=== PATIENT | male | born 1955 | race Caucasian/White ===

== ENCOUNTER 2021-08-27 05:05 | Observation (INO) ==
--- NOTE | 2021-08-17 09:20 | PAT Medication Instructions ---
Medication Instructions Date of Service August 17, 2021 Home Medications Medication Instructions Recorded leuprolide (3 month) 22.5 mg (3 22.5 mg SUBCUT ONCE #1 ea 06/09/21 month) subcutaneous syringe (Eligard) fluoxetine 20 mg capsule 20 mg PO QAM spironolactone 25 mg tablet 25 mg PO QPM atorvastatin 20 mg tablet 20 mg PO QPM felodipine 10 mg tablet,extended release 24 hr 10 mg PO QPM hydrochlorothiazide 25 mg tablet 25 mg PO QAM lisinopril 40 mg tablet 40 mg PO QPM metoprolol succinate 200 mg tablet,extended release 24 hr 200 mg PO QPM multivitamin 1 tab PO QAM leuprolide (3 month) 22.5 mg (3 month) subcutaneous syringe (Eligard) 22.5 mg SUBCUT ONCE aspirin 81 mg chewable tablet 81 mg PO Q OTHER DAY tamsulosin 0.4 mg capsule 0.4 mg PO QPM Continue as directed aspirin 81 mg chewable tablet 81 mg PO Q OTHER DAY (unless surgeon directed otherwise) ASK your prescriber and surgeon leuprolide (3 month) 22.5 mg (3 month) subcutaneous syringe (Eligard) 22.5 mg SUBCUT ONCE DO NOT take the morning of surgery hydrochlorothiazide 25 mg tablet 25 mg PO QAM multivitamin 1 tab PO QAM Take morning of surgery With a small sip of water, OTHERWISE NOTHING TO EAT OR DRINK AFTER MIDNIGHT: fluoxetine 20 mg capsule 20 mg PO QAM Take evening before surgery spironolactone 25 mg tablet 25 mg PO QPM atorvastatin 20 mg tablet 20 mg PO QPM felodipine 10 mg tablet,extended release 24 hr 10 mg PO QPM lisinopril 40 mg tablet 40 mg PO QPM metoprolol succinate 200 mg tablet,extended release 24 hr 200 mg PO QPM tamsulosin 0.4 mg capsule 0.4 mg PO QPM Other Notes If you have any questions please call us at [phone] or [phone] or [phone] or [phone]
--- NOTE | 2021-08-19 11:48 | Anesthesiology Consultation ---
Date of Service August 19, 2021 Assessment & Plan (1) Encounter for pre-operative examination: - Thoracic aortic aneurysm: Dilated ascending aorta (4.0cm) per 2017 echo, Per pt, surveillance echo scheduled prior to surgery (Dr. Dominguez). Awaiting Echo report. - COVID screening: Per assessment on 08/19: No known COVID-19 positive contacts or current COVID-19 related symptoms. Travel screen negative. Patient vaccinated. Surgeon arranging preop COVID testing. Awaiting results. - ETOH use: 4-5 beers/evening, no daytime ETOH use Chart Review Chart Review: Patient seen in Pre Admission Testing Teaching & Discussion Pre-Anesthesia Teaching/Discussion Notes: Instructed NPO after midnight before surgery,except medications with 15 cc of water. Medication instructions provided according to the PAT guidelines. History Surgery Operation Date: 08/27/21 09:20 Proposed Procedures p Left Total Hip Arthroplasty - Jonathan Fatima MD Height/Weight Height: 5 ft 6 in Weight: 98.6 kg Allergies Allergy/AdvReac Type Severity Reaction Status Date / Time amoxicillin Allergy Mild Rash Verified 08/18/21 09:22 Medications Home Medications Medication Instructions Recorded Confirmed Last Taken fluoxetine 20 mg capsule 20 mg PO QAM 05/14/20 08/14/21 Unknown spironolactone 25 mg tablet 25 mg PO QPM 05/14/20 08/14/21 Unknown atorvastatin 20 mg tablet 20 mg PO QPM 07/31/20 08/14/21 Unknown felodipine 10 mg tablet,extended 10 mg PO QPM 07/31/20 08/14/21 Unknown release 24 hr hydrochlorothiazide 25 mg tablet 25 mg PO QAM 07/31/20 08/14/21 Unknown lisinopril 40 mg tablet 40 mg PO QPM 07/31/20 08/14/21 Unknown metoprolol succinate 200 mg 200 mg PO QPM 07/31/20 08/14/21 Unknown tablet,extended release 24 hr multivitamin 1 tab PO QAM 07/31/20 08/14/21 Unknown leuprolide (3 month) 22.5 mg (3 22.5 mg SUBCUT ONCE #1 ea 06/09/21 08/14/21 Unknown month) subcutaneous syringe ([employer]) aspirin 81 mg chewable tablet 81 mg PO Q OTHER DAY 08/14/21 08/14/21 Unknown tamsulosin 0.4 mg capsule 0.4 mg PO QPM 08/14/21 08/14/21 Unknown Past Medical History Medical History Anxiety Arthritis Dyslipidemia Hearing deficit History of COVID-19 Dx 02/2020 Hypertension Lipoma Prostate cancer s/p radiation tx Thoracic aortic aneurysm Dx 10yrs ago, under surveillance by vascular (Dr. Dominguez) 4.0cm per 2017 echo Exercise / Class Metabolic Activity II 4-5 Yardwork/Stairs/Walk up hill Past Family History Family History Father , 79yo Colon cancer Hypertension Mother Heart disease Brother No problems noted. Brother , at ;Twin No problems noted. Brother , day of - Twin No problems noted. Son No problems noted. Other No family history of adverse response to anesthesia Past Surgical History Surgical History H/O colonoscopy History of hip replacement Right History of prostate biopsy Malignant History of tooth extraction History of vasectomy Hx of shoulder surgery Right RCR Past Anesthesia History No Hx of Anesthesia Complications and No Family Hx of Anesthesia Complications History of PONV No Hx of PONV and No Hx of Motion Sickness Social History Smoking Status: Former smoker Smoking cigarettes per day: Quit 40yrs ago Do You Dip or Chew Tobacco: No Hx Alcohol Use: Yes Alcohol type: beer alcohol intake frequency: 3 or more drinks per day (4-5 beers/evening, no daytime ETOH use) Hx Substance Use: No substance use type: does not use Review of Systems Patient denies chest pain, shortness of breath, dyspnea on exertion, fever, chills, cough, wheezing, palpitations. Physical Exam Vital Signs VITALS BP 130/73 P 57 TEMP 98.7 SP02 96%RA RESP 16 PHYSICAL Full cervical extension range of motion. Full TMJ range of motion. TMD 3 finger breaths Mallampati Score 1 Dentition: missing sides Lungs: clear throughout to auscultation Cardiac: regular rate and rhythm, no murmurs noted Spine: normal Carotid arteries: negative bruit Extremities: no edema Lab Results Anesthesia Preop Results Results Anesthesia Widget: PT 11.1 Seconds (9.0-12.0) 08/19/21 PTT 27.4 Seconds (21.0-31.0) 08/19/21 INR 1.0 (0.9-1.1) 08/19/21 Blood Type A Positive 08/19/21 Antibody Screen NEGATIVE 08/19/21 Testing Laboratory Results 08/19/21 WBC 7.22 H/H 11.4/35.3 PLATELETS 232 SODIUM 140 POTASSIUM 4.5 CHLORIDE 107 CO2 25 BUN 31 CREATININE 1.13 GLUCOSE 111 HGBA1C 6.1% Electrocardiogram Date: 08/19/21 SB at 56bpm. unconfirmed report.
--- NOTE | 2021-08-19 15:26 | History & Physical Report ---
Date of Service August 19, 2021 Assessment & Plan (1) Osteoarthritis of left hip: Plan: PRE-OP Diagnosis: Left hip osteoarthritis Planned Procedure: Left total hip arthroplasty Plan: Patient is scheduled to undergo this procedure at the [facility] with a 23-hour observation admission on , August 27, [address] Fatima. Risks and complications of the procedure such as: Infection, bleeding, pain, scarring, nerve blood vessel damage, weakness, wound problems, stiffness, incomplete relief of symptoms, hardware failure, hardware loosening, wear, fracture, tendon or ligament injury, dislocation, leg length inequality, blood clots, embolism, artifact, stroke and were explained to the patient his visit today. Informed consent to perform the procedure was obtained. Patient also understands risks of proceeding with surgical inte rvention during the COVID-19 pandemic. Currently he is asymptomatic and understands that he will need to be tested prior to surgery. Patient states that he has appointment scheduled with his primary care provider Dr. Ronquillo as well as his vascular surgeon Dr. Dominguez for clearance. He states that he is also scheduled to meet with anesthesia of [facility] later today. While there he will obtain an EKG, CBC with differential, complete metabolic panel, PT/INR, blood type and screen, urinalysis, urine culture and sensitivity, hemoglobin A1c, nasal culture for MRSA. Patient states that he has a walker at home we will bring with him on the day of the procedure. He also has a hip kit a raised toilet seat and shower chair at home from his previous hip surgery. We discussed antibiotic use prior to dental procedures following joint replacement surgery. Patient states that he already knows it is from his previous hip surgery. We also discussed lectures offered by [facility] in regards to joint replacement surgery., However he does not feel that he needs to take part in these. I offered him paperwork to obtain a handicap placard for his vehicle and he declined. We discussed discharge planning he plans on doing in-home physical therapy for the first 2 weeks postoperatively and then would like to transition to outpatient physical therapy at [facility] in [place]. I advised the patient that he will be discharged from the hospital with prescriptions for a narcotic pain medication and an anti-inflammatory. I also advised him that I would like him to supplement for additional pain control with extra Tylenol and we would like him to be on a baby aspirin twice daily for the first 30 days postoperatively for blood clot prevention. Patient was scheduled for his 2-week postoperative follow-up with myself on September 11 at 3:45 PM. Patient verbalized understanding of all information provided during today's visit. Thanks for the care they received. If he has questions or concerns should arise prior to surgery, he will contact clinic. History of Present Illness Chief Complaint: Chief Complaint: Left hip pain Primary Care Provider: Elijah Hannah History of Present Illness (including history relevant to procedure): This 66-year-old male presents to clinic today for his preoperative history and physical. Patient states that he has been experiencing significant left hip pain for the past year or 2. Patient states that he had his right hip replaced about 7 years ago by a surgeon in [place]. He states that surgeon is no longer practicing at the recommendation of his primary care provider and his daughter he came to our clinic for evaluation by Dr. Fatima. He says the hip hurts in his groin and anterior thigh mostly. Occasional lateral-sided pain. It bothers him with walking, sitting, and taking care of his horses. It is better with rest. He trialed Celebrex, which did not help. He says he did physical therapy and injections for his right hip before the hip replacement and those did not help, so he is not interested in having those kinds of treatments for the left hip. No numbness or tingling down the leg. He was recently treated for prostate cancer within the last year with radiation Review Of Systems: 12 point review of systems is performed and is unremarkable except for those things stated in the HPI and past medical history. Past Medical History: Problems: Left hip pain Lesion of skin of scalp Annual physical exam Prostate CA Aneurysm of iliac artery Aortic ectasia, thoracic Hypercholesterolemia FH: colon cancer in first degree relative <60 years old Prediabetes, prediabetic Low back pain HTN - Hypertension Family history of cardiovascular disease Overweight DEPRESSION Mitral regurgitation Osteoarthritis of hip Hip pain, right Hearing ED (erectile dysfunction) Tubular adenoma Procedure History Procedure Procedure Date Comments External beam radiation therapy procedure - x 45 treatments for Prostate CA Plain X-ray of left hip 07/21/2021 - No acute fracture or dislocation. Moderate to severe left hip osteoarthritis. Colonoscopy 07/14/2021 - Three 1 to 3 mm polyps in the cecum- biopsied. Two 3 mm polyps in the ascending colon- biopsied. One 4 mm polyp in the transverse colon- biopsied. One 4 mm polyp in the rectum- biopsied. The distal rectum and anal verge are normal on retroflexion view. Repeat colonosocpy in 3-4 years. Bone density scan 07/07/2021 - AP Spine L1-L4 1.3Left Femur Total 0.7Femur Neck 0.3Z-Score 1.2 Bone scan 08/18/2020 - No evidence of skeletal metastatic disease. CT of chest without contrast 08/14/2020 - 1. Multiple small solid pulmonary nodules which measure up to 4 mm. These are likely benign however follow-up according to the attached recommendations is suggested.2. Two low-attenuation left adrenal nodules suggestive of adenomas.3. No acute process within the chest. CT of abdomen and pelvis with contrast 08/06/2020 - 1. There is no evidence of metastatic disease in the abdomen or pelvis.2. Low suspicion pulmonary nodules are seen in the right middle lobe. Consider dedicated chest CT for further assessment of the thorax.3. Low-attenuation left adrenal nodules likely represent adenomas but cannot be definitively characterized due to the presence of IV contrast. These could also be assessed with a noncontrast chest CT.4. Additional findings as above. Colonoscopy 07/21/2020 - One 3mm polyp in the proximal scending colon, removed with cold biopsy forceps. Resected and retrieved. Biopsy of prostate 06/23/2020 - Nodule at right apex; small cyst/hypoechoic area corresponds w/ nodule. Impacted cerumen 11/13/2019 - REMOVAL VASCULAR STUDY 11/12/2019 - INTERPRETATION/FINDINGS Arterial duplex imaging performed of the abdominal aorta andbilateral iliac arteries: 1. The abdominal aorta is within normal limits; no aneurysm or stenosis identified. 2. The bilateral common iliac arteries are ectatic, measuring 1.6 cm on the right and 1.5 cm on the left. 3. No significant stenosis identified in the bilateral common iliac, external iliac or common femoral arteries. Compared to the previous study performed 10/31/2018, there is no change. ECHO TRANSTHORACIC 10/31/2018 - CONCLUSIONS Normal LV size and systolic function with no regional wall motion abnormalities. Ejection fraction is 60%. No left ventricular hypertrophy. Type 2 diastolic dysfunction Indeterminate LA Pressures. Severely dilated left atrium. Dilated right ventricle with normal systolic function. Dilated ascending aorta (4.1 cm). No significant valvular pathology. Normal pulmonary artery pressures. Compared to the previous study performed 08/15/2017, there is no significant change. Eye examination 04/08/2016 - grade 1 hypertensive retinopathy [facility] 09/12/2015 - left hand laceration Colonoscopy 06/04/2015 - tubular adenoma - repeat 5 years testicular ultrasound 05/22/2015 - no change from previous ultrasound THR - Total hip replacement right 02/12/2014 - Dr. Lange Colonoscopy normal 06/12/2006 echo 03/14/2005 Repair of rotator cuff of shoulder 03/14/2004 - right with bicep tendon repaired also Shave biopsy of skin 11/12/2000 - nevus History of - vasectomy 03/14/1987 lipoma of left hip removal 03/14/1987 Allergies and Sensitivities: Cymbalta(lighteaded, dizzy) amoxicillin(rash) Social history: Patient states he consumes between 4 and 5 alcoholic beverages per day. He denies tobacco or illicit drug use Family history: Cancer, Leukemia, hypertension and heart disease Current Home Meds: (Last Updated 08/19 09:41) FLUoxetine (FLUoxetine 20 mg oral capsule) TAKE 1 CAPSULE DAILY atorvastatin (atorvastatin 20 mg oral tablet) 20 mg PO Daily felodipine (felodipine 10 mg oral tablet, extended release) 10 mg PO Daily hydroCHLOROthiazide (hydroCHLOROthiazide 25 mg oral tablet) 25 mg PO Daily ketoconazole topical (ketoconazole 2% topical shampoo) 1 appl topical Daily apply to scalp daily to every other day lisinopril (lisinopril 40 mg oral tablet) TAKE 1 TABLET ONCE DAILY meloxicam (meloxicam 7.5 mg oral tablet) 7.5 mg PO Daily metoprolol (metoprolol succinate 200 mg oral tablet, extended release) 200 mg PO Daily multivitamin (MVI-12) 1 tab PO Daily naproxen (naproxen 500 mg oral tablet) 500 mg PO bid with food spironolactone (spironolactone 25 mg oral tablet) 25 mg PO Daily with meals tamSULOsin 1 capsule daily Allergies Allergy/AdvReac Type Severity Reaction Status Date / Time amoxicillin Allergy Mild Rash Verified 08/18/21 09:22 Home Medications Medication Instructions Recorded Confirmed Type fluoxetine 20 mg capsule 20 mg PO QAM 05/14/20 08/14/21 History spironolactone 25 mg tablet 25 mg PO QPM 05/14/20 08/14/21 History atorvastatin 20 mg tablet 20 mg PO QPM 07/31/20 08/14/21 History felodipine 10 mg tablet,extended 10 mg PO QPM 07/31/20 08/14/21 History release 24 hr hydrochlorothiazide 25 mg tablet 25 mg PO QAM 07/31/20 08/14/21 History lisinopril 40 mg tablet 40 mg PO QPM 07/31/20 08/14/21 History metoprolol succinate 200 mg 200 mg PO QPM 07/31/20 08/14/21 History tablet,extended release 24 hr multivitamin 1 tab PO QAM 07/31/20 08/14/21 History leuprolide (3 month) 22.5 mg (3 22.5 mg SUBCUT ONCE #1 ea 06/09/21 08/14/21 Rx month) subcutaneous syringe (Inotec AMD) aspirin 81 mg chewable tablet 81 mg PO Q OTHER DAY 08/14/21 08/14/21 History tamsulosin 0.4 mg capsule 0.4 mg PO QPM 08/14/21 08/14/21 History Past Med/Surg History Medical History Anxiety Arthritis Dyslipidemia Hearing deficit History of COVID-19 Dx 02/2020 Hypertension Lipoma Prostate cancer s/p radiation tx Thoracic aortic aneurysm Dx 10yrs ago, under surveillance by vascular (Dr. Dominguez) 4.0cm per 2017 echo Surgical History H/O colonoscopy History of hip replacement Right History of prostate biopsy Malignant History of tooth extraction History of vasectomy Hx of shoulder surgery Right RCR Family History Father , 79yo Colon cancer Hypertension Mother Heart disease Brother No problems noted. Brother , at ;Twin No problems noted. Brother , day of - Twin No problems noted. Son No problems noted. 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 Extraocular movements are intact Throat: Deferred due to COVID-19 precautions Cardiac: Regular rate and rhythm with no murmurs or gallops appreciated Lungs: Clear to auscultation throughout with no wheezing, rales or rhonchi Abdomen: Mildly obese, nondistended, nontender with NABS Extremities: Left hip; flexion is limited to 90 degrees, internal rotation to - 10 degrees and external rotation 50 degrees. Logroll test and Stinchfield test are both positive. Straight leg raise test was positive with referred pain to the groin. Patient also had tenderness to palpation in the groin area. He was neurovascularly intact left lower extremity. Neuro: Cranial nerves II through XII are intact no motor or sensory deficit Skin: Normal in appearance no open skin areas or discharge Results & Data ([facility]) Diagnostic Findings Studies (relevant to the procedure): X-rays that were done on July 21, 2021, show a right total hip arthroplasty in place. He has near [id number] arthritis on the left hip with joint space narrowing, subchondral sclerosis, and marginal osteophyte formation.
[2021-08-27] MEDS ORDERED: FAMOTIDINE 20 MG TAB PO SCH (06:00)
[2021-08-27] MEDS ORDERED: TRANEXAMIC ACID 1,000 MG **IV Pre-op IV SCH (06:00)
[2021-08-27] MEDS ORDERED: Scopolamine 1 MG TDSY TD SCH (06:00)
[2021-08-27] MEDS ORDERED: ACETAMINOPHEN 500 MG TAB PO SCH (06:00)
[2021-08-27] MEDS ORDERED: LR 60ML/HR IV SCH (06:00)
[2021-08-27] MEDS ORDERED: CeleBREX 200 MG CAP PO SCH (06:00)
[2021-08-27] MEDS ORDERED: traMADol HCL 50 MG TABLET PO SCH (06:00)
[2021-08-27] MEDS ORDERED: TRANEXAMIC ACID 1,000 MG **IV Intra-op IV SCH (06:00)
[2021-08-27] MEDS ORDERED: LR 500ML BOLUS, THEN 15ML/HR IV SCH (06:00)
[2021-08-27] MEDS ORDERED: dexAMETHasone 4 MG TAB PO SCH (06:00)
[2021-08-27] MEDS ORDERED: ROPIVACAINE 0.5% HCL/PF 150 MG, BUPIVACAINE 0.75% MPF 20 ML, EPINEPHrine 0.15 MG, Ketor... INFIL SCH (06:00)
[2021-08-27] MEDS ORDERED: BUPIVACAINE 0.5 % 5 MG/1 ML PF 10ML VIAL ONE (06:21)
[2021-08-27] MEDS ORDERED: ORTHO JOINT ANESTHETIC ONE (06:36)
[2021-08-27] MEDS ORDERED: ceFAZolin 2,000 MG/15 ML IV PUSH IV ONE (06:41)
--- NOTE | 2021-08-27 06:43 | History & Physical Bridge Note ---
Date of Service August 27, 2021 History & Physical Bridge Note I have examined the patient, reviewed the History & Physical and in the interval since the performance of the History & Physical I have noted the following changes of clinical significance: no changes noted. He has a history of rash from Amoxicillin. We discussed our plan to give Ancef so he has the lowest risk of postoperative surgical site infection, acknowledging a small risk that he will get a rash from Ancef. He agrees with the plan.
[2021-08-27] MEDS ORDERED: MIDAZOLAM HCL 1 MG/ML 2ML VIAL ONE (06:47)
[2021-08-27] MEDS ORDERED: ATROPINE SULFATE 0.1 MG/ML 10ML SYR IV PRN (07:04)
[2021-08-27] MEDS ORDERED: ePHEDrine sulfate 50 MG/ML AMP IV PRN (07:04)
[2021-08-27] MEDS ORDERED: PROPOFOL IV EMULSION 10 MG/ML 20 ML VIAL IV ONE (07:15)
[2021-08-27] MEDS ORDERED: fentaNYL citrate 100 MCG/2 ML VIAL ONE (07:27)
[2021-08-27] MEDS ORDERED: ONDANSETRON INJ 2 MG/ML 2 ML VIAL ONE (07:31)
--- NOTE | 2021-08-27 08:53 | Operative Report ---
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 X-rays demonstrate [id number] arthritis. I had a long discussion with him about the risks and benefits of surgery, alternatives of surgery and expected outcomes. 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 He was cleared by vascular surgery as well as his primary care physician for surgery. After reviewing all of his options he elects to proceed with total hip replacement. Informed consent was signed. Description of Procedure Patient was identified in the preoperative holding area and the surgical site, left hip, was marked. A spinal anesthetic was placed, then the patient was brought back to the main operating room, placed in the operating table and moved into the lateral decubitus position. Axillary roll was placed. All bony prominences were padded. Perioperative antibiotics and tranexamic acid 1 gram IV were administered. Operative extremity was prepped and draped in the normal sterile fashion. Prior to incision a multidisciplinary timeout was called. All in the room were in agreement. We began by making an incision for a posterior approach to the hip. We dissected down through subcutaneous tissues to the level of the fascia. The fascia was incised in line with the incision. Charnley bow was placed. The trochanteric bursa was excised. The piriformis and short external rotators were dissected off the posterior aspect of the hip. A box cut was made in the capsule. The femoral head was dislocated. The femoral neck cut was made at our preoperative template. The acetabulum was then exposed. The labrum was sharply excised. Contents of the cotyloid fossa were removed with electrocautery. We then began reaming at a size 8 mm less than our preoperative template. We reamed up by [address] the way up to a size 56 mm cup. This gave us good bleeding cancellus bone circumferentially. The acetabulum was then irrigated out and dried. The real Eureka Gription cup was then impacted down into position with 45 degrees of lateral opening and 25 degrees of anteversion. A single cancellous bone screw was placed up into the ilium. Excellent fixation was obtained. An Altrx polyethylene liner for a 36 mm femoral head was then impacted into the shell. The locking mechanism was checked to ensure that it had engaged which it had. Next we turned our attention to the femur. The lateral neck was removed with a box osteotome. Intramedullary guide was used followed by the lateralizing reamer. We then reamed up to a size 4 Edgecomb stem. We then broached up to a size 3 which had good stability. We began trialing with a high offset neck and a +5 head. Hip was reduced. Leg length was just slightly longer than his other side. The hip was stable in extension and external rotation, and stable in the sleeper position. At 90 degrees of hip flexion the hip could be internally rotated 55 degrees before levering out of the cup. I was very happy with the stability exam. Therefore the hip was dislocated and the femoral trial was removed. The femoral canal was irrigated and dried. The real size 3 high offset Edgecomb femoral stem was opened up. This was impacted down into position. It sat about 2 mm more proud than the femoral trial. We then re-trialed with a +1.5 mm offset head. Now the leg lengths were symmetric and stability exam was unchanged. Therefore, the 36 mm ceramic femoral head with a +1.5 mm offset was opened up and gently impacted down onto the trunnion. The hip was atraumatically reduced. Another 1 gram of IV tranexamic acid was started prior to closure. The wound was irrigated out with sterile Betadine solution. The periarticular injection cocktail was then placed. The short external rotators, piriformis, and posterior capsule were repaired through drill holes in the greater trochanter using #2 Vicryl. The fascia was run with a looped #1 PDS. The subcutaneous layer was closed with #1 PDS. The dermal layer was closed with 2-0 Vicryl. Zip line was used for the skin followed by a Silverlon dressing. A compressive dressing was then placed. The patient was then rolled supine. Leg lengths were rechecked and were symmetric. An abduction pillow was placed. Sedation was lifted and the patient was transferred to recovery room in stable condition. Summary of implants: Depuy Eureka Gription Acetabular Shell Sector Cup, 56 mm outer diameter Eureka Cancellous bone screw, 6.5 x 30 mm Eureka Altrx Polyethylene Acetabular Liner, Neutral, with a 36 mm inner diameter DePuy Edgecomb Femoral stem with Porocoat, 12/14 taper, size 3 high offset 36 mm ceramic femoral head with +1.5 mm offset Postoperative course: Patient will be admitted to the hospital from the recovery room. Patient will be weightbearing as tolerated with posterior hip precautions. Aspirin for DVT prophylaxis I attest to the content of the Intraoperative Record and any orders documented therein. Any exceptions are noted below.
--- NOTE | 2021-08-27 09:09 | Operative Report ---
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 Fatima during the procedure. Please see Dr. Fatima note. I attest to the content of the Intraoperative Record and any orders documented therein. Any exceptions are noted below.
[2021-08-27] MEDS ORDERED: ALUMINUM/MAGNESIUM SUSP 30 ML UDC PO PRN (09:10)
[2021-08-27] MEDS ORDERED: diphenhydrAMINE 50 MG/ML VIAL IV PRN (09:10)
[2021-08-27] MEDS ORDERED: ONDANSETRON INJ 2 MG/ML 2 ML VIAL IV PRN (09:10)
[2021-08-27] MEDS ORDERED: oxyCODONE HCL IR 5 MG TAB (IMMEDIATE RELEASE) PO PRN (09:10)
[2021-08-27] MEDS ORDERED: MAGNESIUM HYDROXIDE SUSP 30 ML UDC PO PRN (09:10)
[2021-08-27] MEDS ORDERED: METOCLOPRAMIDE HCL INJ 5 MG/ML 2 ML VIAL IV PRN (09:10)
[2021-08-27] MEDS ORDERED: NALOXONE HCL 0.4 MG/1 ML VIAL/CARP IV PRN (09:10)
[2021-08-27] MEDS ORDERED: bisacodyL 10 MG SUPP PR PRN (09:10)
[2021-08-27] MEDS ORDERED: TAMSULOSIN HCL 0.4 MG CAP PO PRN (09:10)
--- NOTE | 2021-08-27 09:10 | Operative Report ---
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 Fellow also present. I served as an extra set of hands during the case. Please see Dr. Fatima procedure note for specifics of the case. I attest to the content of the Intraoperative Record and any orders documented therein. Any exceptions are noted below.
[2021-08-27] MEDS ORDERED: LEUPROLIDE 22.5 MG SQ SCH (09:15)
--- NOTE | 2021-08-27 09:46 | XRay Report ---
SINGLE VIEW PELVIS CLINICAL HISTORY: Postoperative examination. FINDINGS: An AP portable view of the hips and lower pelvis is compared to study dated 08/19/2021. A bip olar left hip arthroplasty has been placed. A single cortical lag screw transfixes the acetabular cup . There is no evidence of acute fracture. Soft tissue swelling and subcutaneous gas overlying the lef t hip are expected postoperative changes. A right hip arthroplasty is unchanged in position. Scleroti c change is noted the pubic symphysis. IMPRESSION: Expected postoperative findings status post left hip arthroplasty. No acute fracture is s een. Electronically signed by: Lit Lilly M.D. 08/27/2021 9:45 AM
--- NOTE | 2021-08-27 09:59 | Anesthesiology Progress Note ---
Date of Service August 27, 2021 Anesthesia Post Procedure Vital Signs Vital Signs: Temp Pulse Resp BP BP Pulse Ox 08/27/21 09:45 36.3 C L 52 L 13 107/68 95 08/27/21 09:35 51 L 11 L 103/63 93 08/27/21 09:25 54 L 11 L 106/70 96 08/27/21 09:15 54 L 11 L 101/67 94 08/27/21 09:08 36.2 C L 53 L 10 L 102/63 98 08/27/21 05:30 37.2 C 56 L 18 132/81 98 Pain Intensity Left Hip: Pain Intensity: 0 Transfer of Care Handoff Completed per policy Notes Mental Status: alert / awake / arousable and participated in evaluation Patient Amnestic to Procedure: Yes Nausea / Vomiting: adequately controlled Pain: adequately controlled Airway Patency, RR, SpO2: stable & adequate BP & HR: stable & adequate Hydration State: stable & adequate Neuraxial Anesthesia: was administered and sensory block is resolving Anesthetic Complications: no major complications apparent
[2021-08-27] MEDS: KETOROLAC TROMETHAMINE 15 MG/ML VIAL IV SCH ×3 (13:03→23:52)
[2021-08-27] MEDS: SODIUM CHLORIDE 0.9% 1000ML 1,000 ML IV SCH ×2 (13:06→22:28)
[2021-08-27] MEDS: ACETAMINOPHEN 500 MG TAB PO SCH ×2 (14:10→21:36)
[2021-08-27] MEDS ORDERED: TRANEXAMIC ACID / 0.7% NACL 1,000 MG/100 ML BAG IV SCH (15:00)
[2021-08-27] MEDS: Scopolamine CHECK PATCH PLACEMENT SCH ×2 (16:58→23:52)
[2021-08-27] MEDS: ceFAZolin 2000MG 2,000 MG/15 ML SYR IV SCH ×2 (16:58→23:52)
[2021-08-27] MEDS: ASPIRIN 81 MG ECTAB PO SCH (20:10)
[2021-08-27] MEDS: DOCUSATE SODIUM 100 MG CAP PO SCH (20:11)
[2021-08-27] MEDS ORDERED: SPIRONOLACTONE 25 MG TAB PO SCH (21:00)
[2021-08-27] MEDS ORDERED: ATORVASTATIN 20 MG TAB PO SCH (21:00)
[2021-08-27] MEDS ORDERED: SENNA 8.6 MG TAB PO SCH (21:00)
[2021-08-27] MEDS ORDERED: METOPROLOL SUCC 50MG EXT REL TAB PO SCH (21:00)
[2021-08-27] MEDS ORDERED: lisinopril 40 MG TAB PO SCH (21:00)
[2021-08-27] MEDS ORDERED: TAMSULOSIN HCL 0.4 MG CAP PO SCH (21:00)
[2021-08-27] MEDS ORDERED: FELODIPINE 5 MG TABCR PO SCH (21:00)
[2021-08-28 04:57] VITALS: TEMP 97.7
[2021-08-28] MEDS: ACETAMINOPHEN 500 MG TAB PO SCH (06:00)
[2021-08-28] MEDS: KETOROLAC TROMETHAMINE 15 MG/ML VIAL IV SCH (06:01)
[2021-08-28] MEDS: SODIUM CHLORIDE 0.9% 1000ML 1,000 ML IV SCH (06:01)
[2021-08-28 07:17] VITALS: BP 115/71; O2SAT 97
[2021-08-28 07:28] LABS: Basophils # (auto) 0.01 K/uL (0-0.2); Basophils % (auto) 0.1 %; Hematocrit (blood only) 31.1 % (42-52); Hemoglobin 10.2 g/dL (14.0-18.0); Immature Granulocytes # (auto) 0.04 K/uL (0.00-0.02); Immature Granulocytes % (auto) 0.3 %; Lymphocytes # (auto) 0.76 K/uL (1.2-3.4); Lymphocytes % (auto) 5.8 %; Mean Corpuscular Hemoglobin 30.2 pg (25-34); Mean Corpuscular Hgb Conc 32.8 g/dL (32-36); Mean Platelet Volume 9.5 fL (7.4-10.4); Neutrophils # (auto) 10.94 K/uL (1.4-6.5); Neutrophils % (auto) 83.8 %; Platelet Count 226 K/uL (130-400); RDW Coefficient of Variation 13.2 % (11.5-14.5); RDW Standard Deviation 44.3 fL (36.4-46.3); Red Blood Count 3.38 M/uL (4.7-6.1); White Blood Count 13.05 K/uL (4.8-10.8)
[2021-08-28] MEDS ORDERED: dexAMETHasone 4 MG TAB PO SCH (08:00)
[2021-08-28 08:05] LABS: Potassium 4.2 mmol/L (3.5-5.1)
[2021-08-28 08:06] LABS: BUN Creatinine Ratio 31.9 (10-20); Calcium 8.5 mg/dl (8.5-10.1); Creatinine Clr Calc Pharmacy 55.3 ml/min; Est GFR (African American) 58.6 ml/min; Est GFR (Non-African American) 50.6 ml/min
[2021-08-28] MEDS: ASPIRIN 81 MG ECTAB PO SCH (08:14)
[2021-08-28] MEDS: Scopolamine CHECK PATCH PLACEMENT SCH (08:15)
[2021-08-28] MEDS: DOCUSATE SODIUM 100 MG CAP PO SCH (08:15)
[2021-08-28] MEDS ORDERED: hydroCHLOROthiazide 25 MG TAB PO SCH (09:00)
[2021-08-28] MEDS ORDERED: MULTIVITAMIN TAB PO SCH (09:00)
[2021-08-28] MEDS ORDERED: ASPIRIN 81 MG CHEW PO SCH (09:00)
[2021-08-28] MEDS ORDERED: NON-FORMULARY MEDICATION (Multivitamin tablet) PO SCH (09:00)
[2021-08-28] MEDS ORDERED: FLUoxetine HCL 20 MG CAP PO SCH (09:00)
--- NOTE | 2021-08-28 09:14 | Orthopedic Progress Note ---
Date of Service August 28, 2021 Assessment & Plan (1) S/P total hip arthroplasty: Plan: Total hip precautions reviewed PT/OT Weightbearing as tolerated with walker assistance Ice with easy wrap DVT prophylaxis with aspirin and [place] stockings Pain control with p.o. medication Abduction pillow use x6 weeks Plan is to discharge home later today with in-home physical therapy for the first 2 weeks postoperatively. Patient is already been scheduled for his 2-week postoperative follow-up visit at [facility] orth[facility]. With questions please contact our clinic at [phone]. Admission and Anticipated Discharge Date Admission Date: August 27, 2021 Subjective This 66-year-old male is day 1 status post left total hip arthroplasty. He states that he is doing very well. He states that he is anxious to be discharged home. States he really has no pain in his hip. States that he has been up walking around with his walker from his bed to the bathroom without issue. He denies chest pain, shortness of breath, fever, chills, sweats, numbness or tingling in his left lower extremity. He also denies nausea, vomiting, diarrhea or difficulty voiding. Review of Systems Review of Systems: All systems reviewed & are unremarkable except as noted in Subjective Physical Exam Physical Exam: Left hip: Outer dressing was removed. Silverlon is intact, clean and dry. Patient is able to perform an active straight leg raise test. He is able to actively dorsi and plantarflex his foot without issue. Quad strength is 3+ to 4 out of 5. He has no pain with logroll testing. He has no p ain with hip flexion to 90 degrees or with light passive external rotation. He does feel a slight twinge with light passive internal hip rotation. Patient is neurovascularly intact in the left lower extremity. Results & Data ([facility]) Vital Signs (Past 12 Hours) Vital Signs Temp Pulse Resp BP Pulse Ox 08/28/21 07:16 36.5 C 51 L 18 115/71 97 08/28/21 04:31 36.5 C 59 L 16 124/60 94 08/28/21 00:43 36.7 C 57 L 16 138/80 95 Diagnostic Findings Laboratory Results WBC 13.05 K/uL (4.8-10.8) H 08/28/21 06:59 RBC 3.38 M/uL (4.7-6.1) L 08/28/21 06:59 Hgb 10.2 g/dL (14.0-18.0) L 08/28/21 06:59 Hct 31.1 % (42-52) L 08/28/21 06:59 MCV 92.0 fL (80-100) 08/28/21 06:59 MCH 30.2 pg (25-34) 08/28/21 06:59 MCHC 32.8 g/dL (32-36) 08/28/21 06:59 RDW Std Deviation 44.3 fL (36.4-46.3) 08/28/21 06:59 RDW Coeff of Sonia 13.2 % (11.5-14.5) 08/28/21 06:59 Plt Count 226 K/uL (130-400) 08/28/21 06:59 MPV 9.5 fL (7.4-10.4) 08/28/21 06:59 Immature Gran % (Auto) 0.3 % 08/28/21 06:59 Neut % (Auto) 83.8 % 08/28/21 06:59 Lymph % (Auto) 5.8 % 08/28/21 06:59 Crosby % (Auto) 10.0 % 08/28/21 06:59 Eos % (Auto) 0.0 % 08/28/21 06:59 Baso % (Auto) 0.1 % 08/28/21 06:59 Neut # (Auto) 10.94 K/uL (1.4-6.5) H 08/28/21 06:59 Lymph # (Auto) 0.76 K/uL (1.2-3.4) L 08/28/21 06:59 Crosby # (Auto) 1.30 K/uL (0.11-0.59) H 08/28/21 06:59 Eos # (Auto) 0.00 K/uL (0-0.5) 08/28/21 06:59 Baso # (Auto) 0.01 K/uL (0-0.2) 08/28/21 06:59 Immature Gran # (Auto) 0.04 K/uL (0.00-0.02) H 08/28/21 06:59 Sodium 137 mmol/L (136-145) 08/28/21 06:59 Potassium 4.2 mmol/L (3.5-5.1) 08/28/21 06:59 Chloride 107 mmol/L (98-107) 08/28/21 06:59 Carbon Dioxide 22 mmol/L (21-32) 08/28/21 06:59 Anion Gap 8 (3-11) 08/28/21 06:59 BUN 46 mg/dl (6-23) H 08/28/21 06:59 Creatinine 1.44 mg/dl (0.6-1.4) H 08/28/21 06:59 Est Cr Clr Drug Dosing 55.3 ml/min 08/28/21 06:59 Est GFR ( Amer) 58.6 ml/min 08/28/21 06:59 Est GFR (Non-Af Amer) 50.6 ml/min 08/28/21 06:59 BUN/Creatinine Ratio 31.9 (10-20) H 08/28/21 06:59 Glucose 123 mg/dl (70-99(Fasting)) H 08/28/21 06:59 Calcium 8.5 mg/dl (8.5-10.1) 08/28/21 06:59 SARS-CoV-2, RNA, NAAT NEGATIVE (NEGATIVE) 08/27/21 05:15 Impressions Pelvis X-Ray 08/27/21 09:10 SINGLE VIEW PELVIS CLINICAL HISTORY: Postoperative examination. FINDINGS: An AP portable view of the hips and lower pelvis is compared to study dated 08/19/2021. A bipolar left hip arthroplasty has been placed. A single cortical lag screw transfixes the acetabular cup. There is no evidence of acute fracture. Soft tissue swelling and subcutaneous gas overlying the left hip are expected postoperative changes. A right hip arthroplasty is unchanged in position. Sclerotic change is noted the pubic symphysis. IMPRESSION: Expected postoperative findings status post left hip arthroplasty. No acute fracture is seen. Electronically signed by: Lit Lilly M.D. 08/27/2021 9:45 AM
--- NOTE | 2021-08-28 09:23 | Discharge Summary ---
Date of Service August 28, 2021 Admission HPI Per Admitting Provider History of Present Illness (including history relevant to procedure): This 66-year-old male presents to clinic today for his preoperative history and physical. Patient states that he has been experiencing significant left hip pain for the past year or 2. Patient states that he had his right hip replaced about 7 years ago by a surgeon in [place]. He states that surgeon is no longer practicing at the recommendation of his primary care provider and his daughter he came to our clinic for evaluation by Dr. Fatima. He says the hip hurts in his groin and anterior thigh mostly. Occasional lateral-sided pain. It bothers him with walking, sitting, and taking care of his horses. It is better with rest. He trialed Celebrex, which did not help. He says he did physical therapy and injections for his right hip before the hip replacement and those did not help, so he is not interested in having those kinds of treatments for the left hip. No numbness or tingling down the leg. He was recently treated for prostate cancer within the last year with radiation Review Of Systems: 12 point review of systems is performed and is unremarkable except for those things stated in the HPI and past medical history. Past Medical History: Problems: Left hip pain Lesion of skin of scalp Annual physical exam Prostate CA Aneurysm of iliac artery Aortic ectasia, thoracic Hypercholesterolemia FH: colon cancer in first degree relative <60 years old Prediabetes, prediabetic Low back pain HTN - Hypertension Family history of cardiovascular disease Overweight DEPRESSION Mitral regurgitation Osteoarthritis of hip Hip pain, right Hearing ED (erectile dysfunction) Tubular adenoma Procedure History Procedure Procedure Date Comments External beam radiation therapy procedure - x 45 treatments for Prostate CA Plain X-ray of left hip 07/21/2021 - No acute fracture or dislocation. Moderate to severe left hip osteoarthritis. Colonoscopy 07/14/2021 - Three 1 to 3 mm polyps in the cecum- biopsied. Two 3 mm polyps in the ascending colon- biopsied. One 4 mm polyp in the transverse colon- biopsied. One 4 mm polyp in the rectum- biopsied. The distal rectum and anal verge are normal on retroflexion view. Repeat colonosocpy in 3-4 years. Bone density scan 07/07/2021 - AP Spine L1-L4 1.3Left Femur Total 0.7Femur Neck 0.3Z-Score 1.2 Bone scan 08/18/2020 - No evidence of skeletal metastatic disease. CT of chest without contrast 08/14/2020 - 1. Multiple small solid pulmonary nodules which measure up to 4 mm. These are likely benign however follow-up according to the attached recommendations is suggested.2. Two low-attenuation left adrenal nodules suggestive of adenomas.3. No acute process within the chest. CT of abdomen and pelvis with contrast 08/06/2020 - 1. There is no evidence of metastatic disease in the abdomen or pelvis.2. Low suspicion pulmonary nodules are seen in the right middle lobe. Consider dedicated chest CT for further assessment of the thorax.3. Low-attenuation left adrenal nodules likely represent adenomas but cannot be definitively characterized due to the presence of IV contrast. These could also be assessed with a noncontrast chest CT.4. Additional findings as above. Colonoscopy 07/21/2020 - One 3mm polyp in the proximal scending colon, removed with cold biopsy forceps. Resected and retrieved. Biopsy of prostate 06/23/2020 - Nodule at right apex; small cyst/hypoechoic area corresponds w/ nodule. Impacted cerumen 11/13/2019 - REMOVAL VASCULAR STUDY 11/12/2019 - INTERPRETATION/FINDINGS Arterial duplex imaging performed of the abdominal aorta andbilateral iliac arteries: 1. The abdominal aorta is within normal limits; no aneurysm or stenosis identified. 2. The bilateral common iliac arteries are ectatic, measuring 1.6 cm on the right and 1.5 cm on the left. 3. No significant stenosis identified in the bilateral common iliac, external iliac or common femoral arteries. Compared to the previous study performed 10/31/2018, there is no change. ECHO TRANSTHORACIC 10/31/2018 - CONCLUSIONS Normal LV size and systolic function with no regional wall motion abnormalities. Ejection fraction is 60%. No left ventricular hypertrophy. Type 2 diastolic dysfunction Indeterminate LA Pressures. Severely dilated left atrium. Dilated right ventricle with normal systolic function. Dilated ascending aorta (4.1 cm). No significant valvular pathology. Normal pulmonary artery pressures. Compared to the previous study performed 08/15/2017, there is no significant change. Eye examination 04/08/2016 - grade 1 hypertensive retinopathy [facility] 09/12/2015 - left hand laceration Colonoscopy 06/04/2015 - tubular adenoma - repeat 5 years testicular ultrasound 05/22/2015 - no change from previous ultrasound THR - Total hip replacement right 02/12/2014 - Dr. Lange Colonoscopy normal 06/12/2006 echo 03/14/2005 Repair of rotator cuff of shoulder 03/14/2004 - right with bicep tendon repaired also Shave biopsy of skin 11/12/2000 - nevus History of - vasectomy 03/14/1987 lipoma of left hip removal 03/14/1987 Allergies and Sensitivities: Cymbalta(lighteaded, dizzy) amoxicillin(rash) Social history: Patient states he consumes between 4 and 5 alcoholic beverages per day. He denies tobacco or illicit drug use Family history: Cancer, Leukemia, hypertension and heart disease Current Home Meds: (Last Updated 08/19 09:41) FLUoxetine (FLUoxetine 20 mg oral capsule) TAKE 1 CAPSULE DAILY atorvastatin (atorvastatin 20 mg oral tablet) 20 mg PO Daily felodipine (felodipine 10 mg oral tablet, extended release) 10 mg PO Daily hydroCHLOROthiazide (hydroCHLOROthiazide 25 mg oral tablet) 25 mg PO Daily ketoconazole topical (ketoconazole 2% topical shampoo) 1 appl topical Daily apply to scalp daily to every other day lisinopril (lisinopril 40 mg oral tablet) TAKE 1 TABLET ONCE DAILY meloxicam (meloxicam 7.5 mg oral tablet) 7.5 mg PO Daily metoprolol (metoprolol succinate 200 mg oral tablet, extended release) 200 mg PO Daily multivitamin (MVI-12) 1 tab PO Daily naproxen (naproxen 500 mg oral tablet) 500 mg PO bid with food spironolactone (spironolactone 25 mg oral tablet) 25 mg PO Daily with meals tamSULOsin 1 capsule daily Admission Exam Per Admitting Provider Physical Exam: (relevant to the procedure, including heart and lung evaluation) General: Alert and oriented x3 with proper grooming and hygiene Eyes: Pupils are equal and reactive to light with accommodation. Extraocular movements are intact Throat: Deferred due to COVID-19 precautions Cardiac: Regular rate and rhythm with no murmurs or gallops appreciated Lungs: Clear to auscultation throughout with no wheezing, rales or rhonchi Abdomen: Mildly obese, nondistended, nontender with NABS Extremities: Left hip; flexion is limited to 90 degrees, internal rotation to - 10 degrees and external rotation 50 degrees. Logroll test and Stinchfield test are both positive. Straight leg raise test was positive with referred pain to the groin. Patient also had tenderness to palpation in the groin area. He was neurovascularly intact left lower extremity. Neuro: Cranial nerves II through XII are intact no motor or sensory deficit Skin: Normal in appearance no open skin areas or discharge Principal Diagnosis Left hip osteoarthritis Discharge Exam Left hip: Outer dressing was removed. Silverlon is intact, clean and dry. Patient is able to perform an active straight leg raise test. He is able to actively dorsi and plantarflex his foot without issue. Quad strength is 3+ to 4 out of 5. He has no pain with logroll testing. He has no pain with hip flexion to 90 degrees or with light passive external rotation. He does feel a slight twinge with light passive internal hip rotation. Patient is neurovascularly intact in the left lower extremity. Discharge Data Allergies Allergy/AdvReac Type Severity Reaction Status Date / Time amoxicillin Allergy Mild Rash Verified 08/27/21 05:25 Procedures Performed Operation Date: 08/27/21 07:00 Actual Procedures p Left Total Hip Arthroplasty(Left) - Jonathan Fatima MD Hospital Course (1) S/P total hip arthroplasty: Patient had an uneventful overnight stay following left total hip arthroplasty. He is doing very well this morning. He is very anxious to be discharged home. He plans on doing in-home physical therapy for the first 2 weeks postoperatively with [facility] home [facility]. He states he is very pleased with the results of the surgery. He states that he already has a follow-up scheduled with us for the 2-week postoperative interval. If he has questions or concerns he will contact our clinic. Total hip precautions reviewed PT/OT Weightbearing as tolerated with walker assistance Ice with easy wrap DVT prophylaxis with aspirin and [place] stockings Pain control with p.o. medication Abduction pillow use x6 weeks Plan is to discharge home later today with in-home physical therapy for the first 2 weeks postoperatively. Patient is already been scheduled for his 2-week postoperative follow-up visit at [facility]. With questions please contact our clinic at [phone]. Total Time Total Time Spent Total Time Spent (In Minutes): 15 minutes Discharge Plan Discharge Items Patient Disposition: Home - Home Health Services Reason For Visit: Left Hip Osteoarthtirits Discharge Diagnosis: Left total hip replacement Activity: Per Instructions section Lifting: None Bathing: Keep incision dry Bathing Comment: May shower tomorrow Sexual Activity: Wait until after follow-up appointment Exercise/Sports: None Driving/Machine Use: No driving until cleared by onboarding specialist Weightbearing: Left weightbearing Weightbearing Comment: As tolerated with walker assistance Non-emergency contact: Surgeon Call non-emergency contact if: you have any medication questions, your symptoms worsen, your pain is not controlled, your pain is worsening, your temperature is above 101.5, your wound has increased redness, your wound has increased drainage and your wound pain has increased Follow-up/Referrals: Elijah Hannah [Primary Care Provider] - Diet: Regular Addtl Attending Provider Instructions: Post-operative Instructions Dear Patient and Family/Friends, Before you are discharged from the hospital, it is important to know what to expect when you get home after surgery. To that end, we have created this sheet of discharge instructions which covers many commonly asked questions. Make sure you go through this sheet in its entirety with your nurse before you are discharged. Please note that we will go over the specifics of your surgery and recovery when you return for your first post-operative visit. Sincerely, Dr. Fatima Medications 1. Oxycodone 5 mg: Take 1-2 tabs every 4-6 hours as needed for pain control. A prescription for this medication will be sent to your pharmacy 2. Aspirin 81 mg: Increase your daily aspirin intake to 2 tabs for the next 30 days for postoperative blood clot prevention 3. Diclofenac sodium 75 mg: Take 1 tab twice daily for the next 30 days for additional pain and inflammation relief. A prescription for this medication will be sent to your pharmacy with 1 refill. 4. Extra strength Tylenol 500 mg: Take 2 tabs every 6-8 hours as needed for additional pain relief. Please purchase this medication. Pain Expect to be in a fair amount of pain after surgery. Remember, our goal is not to eliminate your pain, but to make it tolerable. It is a good idea to stay ahead of your pain by taking the medications you were prescribed once you get home. Typically, the pain starts improving 3-7 days after surgery. You should start weaning off the narcotic pain medication (oxycodone, hydrocodone, hydromorphone, morphine) as soon as your pain improves. Please call our office if your pain is not adequately controlled. Ice Ice your operative site at least 5 times a day for 15-30 minutes at a time. Make sure you have a thin cloth between the ice or cooling unit and your skin to prevent heredia bite. This is especially important if you received a nerve block. Continue icing your operative site for the first 5-7 days after surgery, then as needed. Diet/Nausea/Vomiting Start by drinking clear liquids and eating crackers. If you can tolerate this, then you may resume your normal diet. If you feel nauseated or vomit, take Zofran/ondansetron (if prescribed). Please call our office if you have intractable nausea or vomiting, or, if after hours, you may go to the Emergency Room for help. Constipation Constipation is a common side effect of narcotic pain medication. If you have not had a bowel movement within 2 days after surgery, we recommend purchasing an over the counter laxative such as Milk of Magnesia, Dulcolax, or Miralax from a local pharmacy, and taking it as instructed. Call our clinic if any questions. Slings and Braces If you were placed in a sling or brace, it must be worn at all times, including sleep. You may remove your sling or brace for physical therapy, home exercises, and showering. The length of time you will be in your brace and range of motion restrictions depends on what surgery you had; these details will be reviewed at your first post-operative appointment. Nerve block The anesthesia team sometimes places a nerve block to help with post-operative pain control. This results in significant numbness and inability to move the extremity. The nerve block usually wears off in 8-12 hours, but sometimes can last up to 24 hours. Please call our office if you are still unable to move your extremity after 24 hours, unless you received a pain pump to take home. Nerve blocks typically wear off quickly, so start taking pain medication as soon as you start feeling soreness near your surgical site. Weight bearing and Range of Motion. Do not bear any weight through your operative extremity immediately after surgery. If you had upper extremity surgery, do not lift anything with that arm. If you are in a knee brace, keep it locked in place until your follow-up. We will discuss your weight bearing, range of motion, and lifting restrictions in detail at your first post-operative appointment. Continuous Passive Motion (CPM) Machine If you were prescribed a CPM machine, it will start after your first post- operative appointment, at which time we will give you instructions on the range of motion settings and duration of treatment Physical therapy You will be given a prescription for physical therapy or occupational therapy at your first post-operative appointment. Typically, patients start therapy within 1 week of surgery Wound care and showering We will inspect your wound at your first post-operative visit, and may do a dressing change at that time. Most patients will be in a water-proof dressing that is removed 14 days after surgery. It is normal to see some dried blood on the dressing. Do not remove your dressing, paper strips or sutures yourself unless you are given permission. Showering is allowed the day after surgery. Do not scrub or remove any dressings. The wound should not be submerged underwater (i.e. in a bathtub or pool) until 4 weeks after surgery AFRICA stockings If you were given white stockings, these are to be worn at all times except to shower (on both legs) for the first 2 weeks after surgery. Driving You may not drive while taking narcotic pain medication or while in a cast, splint, sling or brace. You, the patient, need to make the final determination about when you are safe to drive, however, the earliest you may consider driving after surgery is below: Hand/Wrist/Elbow Surgery: 3 days Shoulder Surgery: 2 weeks Hip,/Knee/Ankle Surgery: 4 weeks Fracture repair: 6 weeks Return to Work Your return to work depends on what surgery was done and what type of work you do. Please bring any paperwork your employer needs completed to your first post -operative visit. Also, bring a description of your job duties, as this helps us to understand what risks you may face at work. Travel Avoid long distance travel (greater than 1 hour) in airplanes and cars for the first 6 weeks after surgery. If you must travel, you need to have a Doppler ultrasound done before you travel to rule out a blood clot in your legs. Follow-up You should have a follow-up appointment already scheduled 1-2 days after surgery. If not, please contact our office to make this appointment before you leave the hospital. When to call the office It is normal to have swelling and bruising in the limb that was operated on. This will improve with time. It is also normal to have fevers for the first 2 days after surgery. Reasons you should call your doctor include: Uncontrolled pain; Nausea, vomiting, or constipation that does not improve with medication; Fevers over 101.5, chills, sweats; Drainage or bleeding from the wound; Foul odor; Spreading areas of redness; Any other concerns Pending Studies at Discharge: No Stand-Alone Forms: My [facility] Medications and DC Order Prescriptions: New oxycodone 5 mg tablet 5 mg PO Q4H MDD Ongoing treatment Qty: 28 RF: 0 diclofenac sodium 75 mg tablet,delayed release (DR/EC) 75 mg PO BID 30 Days Qty: 60 RF: 1 Continued hydrochlorothiazide 25 mg tablet 25 mg PO QAM RF: 0 multivitamin Tablet 1 tab PO QAM RF: 0 lisinopril 40 mg tablet 40 mg PO QPM RF: 0 metoprolol succinate 200 mg tablet extended release 24 hr 200 mg PO QPM RF: 0 atorvastatin 20 mg tablet 20 mg PO QPM RF: 0 felodipine 10 mg tablet extended release 24 hr 10 mg PO QPM RF: 0 Eligard (3 month) 22.5 mg syringe 22.5 mg subcut ONCE Qty: 1 RF: 0 fluoxetine 20 mg capsule 20 mg PO QAM RF: 0 spironolactone [Aldactone] 25 mg tablet 25 mg PO QPM RF: 0 tamsulosin 0.4 mg capsule 0.4 mg PO QPM RF: 0 Changed aspirin 81 mg Tablet,Chewable 81 mg PO BID Qty: 0 RF: 0 Discharge Orders: Discharge Order (Routine); Ordered 08/28/21 Ordered By: Ramon Doty Admission Data Admit Date/Time: 08/27/21 09:10 Attending Provider: Jonathan Fatima Admit Provider: Jonathan Fatima Primary Care Provider: Elijah Hannah Other Providers: [employer] [facility]
[2021-08-28 09:32] VITALS: PULSE 53
[2021-08-28] MEDS ORDERED: CeleBREX 200 MG CAP PO SCH (21:00)
== END 2021-08-28 11:50 | disposition home health service (06) ==
LOC: 3W 05:05 → ASU 05:05 → 3W 20:29